=== PATIENT | male | born 1950 | race Caucasian/White ===

== ENCOUNTER 2018-07-12 05:35 | Inpatient (IN) | payer OTHER ==
[2018-07-12] MEDS ORDERED: GABAPENTIN 300 MG CAP PO ONE (05:47)
[2018-07-12] MEDS ORDERED: ceFAZolin 2 GM/DEXTROSE 100 ML IV ONE (05:47)
[2018-07-12] MEDS ORDERED: ACETAMINOPHEN 500 MG TAB PO ONE (05:47)
--- NOTE | 2018-07-12 06:02 | PDHPUP ---
History & Physical Update H&P update statement: This history and physical update is based on an assessment of the patient which was completed after admission or registration (within 24 hours), but prior to the surgery/procedure. H&P update: H&P reviewed & patient examined, no change in patient's condition since H&P completed
[2018-07-12] MEDS ORDERED: LR 1,000 ML IV ONE (06:07)
[2018-07-12] MEDS ORDERED: BUPIVACAINE 0.25% 30 ML SDV ONE (06:16)
[2018-07-12] MEDS ORDERED: EPINEPHrine 1 MG/ML INJ ONE (06:16)
[2018-07-12] MEDS ORDERED: THROMBIN (BOVINE) 5,000 UNIT VIAL TP ONE (06:16)
[2018-07-12] MEDS ORDERED: CHLORHEXIDINE GLUC HIBICLENS 118 ML BTL TP ONE (06:16)
[2018-07-12] MEDS ORDERED: DEPO METHYLPREDNISOLONE 40 MG/ML SDV ONE (06:16)
[2018-07-12] MEDS ORDERED: BACITRACIN 50,000 UNITS/10 ML SYR IRR ONE (06:17)
[2018-07-12] MEDS ORDERED: MIDAZOLAM 2 MG/2 ML VIAL IVP ONE (06:39)
--- NOTE | 2018-07-12 06:44 | PDANEPAE ---
ANE History of Present Illness Lumbar laminectomies ANE Past Medical History - Cardiovascular History Hx Hypertension: No Hx Arrhythmias: No Hx Chest Pain: No Hx Coronary Artery / Peripheral Vascular Disease: No Hx CHF / Valvular Disease: No Hx Palpitations: No - Pulmonary History Hx COPD: No Hx Asthma/Reactive Airway Disease: No Hx Recent Upper Respiratory Infection: No Hx Oxygen in Use at Home: No Hx Sleep Apnea: No Sleep Apnea Screening Result - Last Documented: Negative - Neurologic History Hx Cerebrovascular Accident: No Hx Seizures: No Hx Dementia: No Neurologic History Comment: PARKINSON'S DX 2012 - Endocrine History Hx Diabetes: No Hypothyroid: No Hyperthyroid: No Obesity: no - Renal History Hx Renal Disorders: No - Liver History Hx Hepatic Disorders: No - Neurological & Psychiatric Hx Hx Neurological and Psychiatric Disorders: No - Cancer History Hx Cancer: Yes Cancer History Comment: PROSTATE - Congenital Disorder History Hx Congenital Disorders: No - GI History Hx Gastrointestinal Disorders: No - Other Health History Other Health History: SPINAL STENOSIS. BILATERAL N/T LEGS-FEET. MISSING TEETH - Chronic Pain History Chronic Pain: Yes (LOWER BACK AND LEGS/FEET) - Surgical History Prior Surgeries: PROSTATECTOMY 2008. SARAH KNEE SCOPES. TONSILLECTOMY ANE Review of Systems Review of Systems: - Exercise capacity METS (RN): 4 METS ANE Patient History - Allergies Allergies/Adverse Reactions: No Known Allergies Allergy (Verified 06/17/18 13:28) - Home Medications Home Medications: Amantadine HCl [Gocovri] 137 mg PO HS 06/17/18 [Last Taken 07/11/18] Carbidopa/Levodopa 25/100Mg [Sinemet 25/100 MG (*)] 1 tab PO TID@08,1330,1730 [Last Taken 07/11/18] Ibuprofen [Motrin (*)] 200 mg PO DAILY PRN 06/17/18 [Last Taken 07/02/18] - NPO status NPO Status: no food or drink >8 hours NPO Since - Liquids (Date): 07/11/18 NPO Since - Liquids (Time): 20:30 NPO Since - Solids (Date): 07/11/18 NPO Since - Solids (Time): 19:30 - Anes Hx Anes Hx: no prior problems - Smoking Hx Smoking Status: Former smoker - Alcohol Use Alcohol Use: Occasionally - Family Anes Hx Family Anes Hx: none ANE Labs/Vital Signs - Vital Signs Blood Pressure: 154/101 Heart Rate: 69 Respiratory Rate: 16 O2 Sat (%): 93 Height: 175.26 cm Weight: 79.379 kg ANE Physical Exam - Airway Neck exam: FROM Mallampati Score: Class 2 Mouth exam: normal dental/mouth exam - Pulmonary Pulmonary: no respiratory distress, no rales or rhonchi - Cardiovascular Cardiovascular: regular rate and rhythym, no murmur, rub, or gallop - ASA Status ASA Status: III ANE Anesthesia Plan Anesthesia Plan: general endotracheal anesthesia
[2018-07-12] MEDS ORDERED: fentaNYL 250 MCG/5 ML INJ ONE (06:48)
[2018-07-12] MEDS ORDERED: PROPOFOL/EMULSION 500 MG/50 ML BOTTLE IV ONE ×2 (06:48)
[2018-07-12] MEDS ORDERED: ROCURONIUM 50 MG/5 ML VIAL ONE (06:49)
[2018-07-12] MEDS ORDERED: LIDOCAINE 2% 5 ML SDV ONE (06:49)
[2018-07-12] MEDS ORDERED: HYDROmorphONE/DILAUDID 1 MG/ML INJ IVP PRN (07:23)
[2018-07-12] MEDS ORDERED: BISACODYL 10 MG SUPP PR PRN (07:23)
[2018-07-12] MEDS ORDERED: diphenhydrAMINE 25 MG CAP PO PRN (07:23)
[2018-07-12] MEDS ORDERED: ONDANSETRON DISINTEGRATING 4 MG TAB PO PRN (07:23)
[2018-07-12] MEDS ORDERED: LACTULOSE 20 GM/30 ML UDCUP PO PRN (07:23)
[2018-07-12] MEDS ORDERED: POLYETHYLENE GLYCOL 3350 17 GM PKT PO PRN (07:23)
[2018-07-12] MEDS ORDERED: MAGNESIUM HYDROXIDE 30 ML UDCUP PO PRN (07:23)
[2018-07-12] MEDS ORDERED: ONDANSETRON 4 MG/2 ML VIAL IVP PRN ×2 (07:23→09:51)
[2018-07-12] MEDS ORDERED: NS 1,000 ML IV SCH (07:30)
[2018-07-12] MEDS ORDERED: ESMOLOL HCL 100 MG/10 ML VIAL IV ONE (07:35)
[2018-07-12] MEDS ORDERED: METOPROLOL TARTRATE 5 MG/5 ML INJ ONE (07:35)
[2018-07-12] MEDS ORDERED: fentaNYL 100 MCG/2 ML INJ ONE ×2 (07:36→10:12)
[2018-07-12] MEDS ORDERED: DEXAMETHASONE 4 MG/ML VIAL ONE (08:04)
[2018-07-12] MEDS ORDERED: ONDANSETRON 4 MG/2 ML VIAL ONE (09:21)
--- NOTE | 2018-07-12 09:42 | POSTOPPROG ---
Post Op Note Date of Operation: 07/12/18 Surgeon: Nneka Marsh Call Center Analyst: JERICA Renteria Anesthesiologist: MD David Anesthesia: GET(General Endotracheal), Local (Specify) Pre-op Diagnosis: lumbar stenosis L3-L5 Post-op Diagnosis: lumbar stenosis L3-L5 Indication: BLE pain, LBP Procedure: L3-L5 laminectomy Findings: see op report Inf/Abcess present in the surg proc area at time of surgery?: No Depth: Deep Incisional (Fascial) EBL: 50-100 Total fluids administered: see anesthesia record Complications: none Clean Closure Performed: Yes Drains: Ashutosh Key
[2018-07-12] MEDS ORDERED: oxyCODONE IR 5 MG TAB PO PRN (09:51)
[2018-07-12] MEDS ORDERED: HYDROCODONE/APAP 5/325 TAB PO PRN (09:51)
[2018-07-12] MEDS ORDERED: PROMETHAZINE HCL 25 MG/ML INJ IVP PRN (09:51)
[2018-07-12] MEDS ORDERED: NALOXONE HCL 0.4 MG/ML INJ IVP PRN (09:51)
[2018-07-12] MEDS ORDERED: DIAZEPAM 5 MG/ML 1 ML SYR IVP PRN (09:51)
[2018-07-12] MEDS ORDERED: HYDROmorphONE/DILAUDID 2 MG/ML INJ IVP PRN (09:51)
--- NOTE | 2018-07-12 09:52 | SOAPPROG ---
SOAP Progress Note Assessment/Plan: Post Op Visit: S: Awake and alert. NAD. Pt with expected lower back pain O: AFVSS/PERRLA/EOMI no droop CN 2-12 grossly intact +lt touch 5/5 BUE/BLE = CDI A/P: 68 yo male that is s/p L3-L5 laminectomy -orders in place -call with any questions or concerns -take medications as directed -Pt seen by Dr Marsh as well Objective: Vital Signs Temp Pulse Resp BP Pulse Ox 36.9 C 69 16 154/101 H 93 07/12/18 06:09 07/12/18 06:43 07/12/18 06:43 07/12/18 06:43 07/12/18 06:43 ICD10 Worksheet Patient Problems: Problems Problem Status Onset Lumbar radicular pain Acute Lumbar stenosis Acute - ICD10 Problem Qualifiers (1) Lumbar stenosis (2) Lumbar radicular pain
[2018-07-12] MEDS: FAMOTIDINE 20 MG TAB PO SCH ×2 (10:12→21:37)
[2018-07-12] MEDS: SENNOSIDES/DOCUSATE SODIUM TAB PO SCH ×2 (10:13→21:37)
[2018-07-12] MEDS: CARBIDOPA/LEVODOPA 25 MG/100 MG TAB PO SCH ×3 (10:13→16:28)
[2018-07-12] MEDS: fentaNYL 100 MCG/2 ML INJ IVP PRN ×3 (10:15→10:35)
--- NOTE | 2018-07-12 10:31 | GOP ---
[f rep st] OPERATIVE REPORT DATE OF OPERATION: 07/12/2018 SURGEON: Jose Juan Marsh MD NEUROSURGEON: Jose Juan Marsh MD. [employer]EM[employer]: Larry Renteria PA-C. PREOPERATIVE DIAGNOSIS: Severe spinal stenosis, L3-4, L4-5; neurogenic claudication; degenerative sc oliosis; multilevel lumbar spondylosis; foraminal stenosis, L3-4, L4-5. POSTOPERATIVE DIAGNOSIS: Severe spinal stenosis, L3-4, L4-5; neurogenic claudication; degenerative s coliosis; multilevel lumbar spondylosis; foraminal stenosis, L3-4, L4-5. PROCEDURE PERFORMED: Bilateral L3-4, L4-5 laminectomies with bilateral recess decompressions, L3-4, L4-5 with bilateral foraminotomies at L3-4, L4-5, with special attention to the left L4-5 foramen and the right L3-4 foramen ([id number], microscope). FINDINGS: ESTIMATED BLOOD LOSS: 50 mL. INDICATIONS: The patient is an elderly gentleman with a history of Parkinson disease, had terrible p ain radiating down both legs and MRI demonstrated severe stenosis at L3-4, L4-5 with very severe righ t foraminal stenosis at 3-4 and very severe left foraminal stenosis at 4-5, and I suggested bilateral decompressions at 3-4, 4-5. He understood that he also had a degenerative scoliosis, although we di d not belabor this point, but the plan today was simply to decompress the spinal canal and the neural foramen to the extent that we could, but more significant multilevel spine surgery could be consider ed if this failed, but I thought simple decompressions alone were in the patient's best interest and had a reasonable chance of success. The risks of continued symptoms, nerve injury, spinal fluid leak were discussed. He wanted to proceed despite the risks. DESCRIPTION OF PROCEDURE: The patient was taken to the operating room and placed in supine position. General anesthesia was begun. He was flipped prone on the Trent frame. Care was taken to pad all points of contact. His back was sterilely prepped and draped in the usual fashion. A localizing x- ray was taken. I made a midline incision. It was about 3.5 cm in length above the L3-4, 4-5 intersp irena. The subcutaneous tissues were dissected using Bovie cautery down to the fascia and a subperiost eal dissection was made down the L3, L4 and rostral L5 lamina. Self-retaining retractor was placed. A localizing x-ray was taken. We removed the L4 spinous process. We removed the inferior L3 spinou s process. We drilled bilateral laminectomies at L3-4, 4-5, preserving the rostral arch of L3. We r emoved the complete lamina of L4. We preserved the IAP, SAP complexes of L3-4, L4-5 bilaterally. Un bill the microscope, we opened the ligamentum flavum and decompressed centrally at the 3-4, 4-5 level and then worked our way into the lateral recesses, first on the left, beginning at the L5 pedicle and we worked our way up along the L4-5 facet joint and all the way past the L4 pedicle to the L3-4 segm ent where we decompressed the lateral recess at L3-4. We only removed about a third of the medial fa cet on the left-hand side and we ended up removing about a third of the medial facets on right at L3- 4, 4-5. We then turned our attention the right where we decompressed adjacent to the right L5 pedicl e and worked our way up along the lateral recess at L4-5, removing the spondylotic tissue from the la teral aspect of the spinal canal. We decompressed from the thecal edge of the thecal sac to the edge of the thecal sac and we could appreciate the traversing L5 roots at L4-5, the traversing L4 roots a t 3-4. We worked our way up on the right-hand side adjacent to the L4 pedicle and then the L3-4 disk space and we focused on the right foramen at L3-4, where we decompressed the foramen nicely, identif ied the exiting L3 nerve root. The neural foramen was nicely decompressed there. We did likewise on the right at L4-5, but the foraminal stenosis there was more reasonable. We went to the left side a t L4-5 where there was really remarkable left foraminal stenosis at 4-5 due to include incursion of t he SAP of L5 into the exiting L4 nerve root at the 4-5 level on the left side. We got a great decomp ression. We were able to pass a ball-tip probe out along the 4 root into the neural foramen at the e nd of our decompression. We did do a left foraminotomy at L3-4, but it was not as extensive as the r ight foraminotomy 3-4. We irrigated with antibiotic saline solution, shot a final x-ray confirming t he extent of our decompressions from the inferior L3 pedicle down to the mid L5 pedicle. We had grea t decompressions on each side. The facet joints had been preserved. We then closed the incision in multiple layers using Vicryl sutures. A running PDS was placed in the skin itself. The patient was reversed from anesthesia, extubated and transferred to the recovery room in stable condition. COMPLICATIONS: None. /[id number]/MODL
[2018-07-12] MEDS ORDERED: HYDROmorphONE/DILAUDID 2 MG/ML INJ ONE (10:44)
[2018-07-12] MEDS: METHOCARBAMOL 750 MG TAB PO PRN ×2 (11:38→18:14)
[2018-07-12] MEDS: oxyCODONE IR 5 MG TAB PO PRN ×3 (11:38→21:39)
--- NOTE | 2018-07-12 11:44 | PDMN ---
Medical Necessity Medical necessity: Pt meets inpt criteria per MD order and [employer] [facility] [employer] S-830, Lumbar Laminectomy. 68 y/o w/ severe spinal stenosis, L3-4, L4-5 and resultant BLE pain and low back pain admitted for surg intervention: L3-L5 laminectomy. W/ surg involving more than 1 level and comorbid condition of Parkinsons, pt meets inpt status criteria.
[2018-07-12] MEDS: GABAPENTIN 300 MG CAP PO SCH ×2 (13:18→21:38)
[2018-07-12] MEDS: ACETAMINOPHEN 500 MG TAB PO SCH ×2 (13:19→21:37)
[2018-07-12] MEDS: ceFAZolin 2 GM/DEXTROSE 100 ML IV SCH ×2 (13:20→21:37)
[2018-07-12] MEDS ORDERED: AMANTADINE HCL 137 MG PO SCH (21:00)
[2018-07-13] MEDS: GABAPENTIN 300 MG CAP PO SCH ×2 (05:30→13:43)
[2018-07-13] MEDS: ACETAMINOPHEN 500 MG TAB PO SCH ×2 (06:34→13:43)
--- NOTE | 2018-07-13 08:03 | NEUSURGPN ---
Date of Surgery: 07/12/18 Post Op Day: 1 Assessment/Plan: Assessment: 68 yo male that is s/p L3-L5 laminectomy POD #1 Plan: -s/p lumbar laminectomy: doing well this am. Pt states that legs feel better, he still has some numbness that is better but not gone -PT/OT pending -no brace needed -orders in place -call with any questions or concerns -take medications as directed -Pt seen by Dr Marsh as well -plan for dc later today Subjective: Awake and alert. NAD. Eating/drinking and voiding. No f/c/n/v/d. No granger/neck/ chest/abd or gu complaints. Objective: AFVSS/PERRLA/EOMI no droop CN 2-12 grossly intact +lt touch 5/5 BUE/BLE = CDI Neuro Check Frequency: per routine Urinary Catheter in Place: No - Physician Discussed Patient with : Maximo Patient Seen by : Maximo Neurosurgery Physical Exam - Vitals, I&O, Labs I and O 07/12/18 07/13/18 07/14/18 05:59 05:59 05:59 Intake Total 1940 Output Total 950 500 Balance 990 -500 Weight 79.379 kg Intake: Oral (ml) 330 IV Intake (ml) 1500 IV Infused (ml) 110 ceFAZolin 2 GM/DEXTROSE 110 100 ml @ 200 mls/hr IV Q8HRS [facility] Rx#:[id number] Output: Urine (ml) 800 500 Toilet 800 500 Estimated Blood Loss (ml) 50 Emesis (ml) 100 Other: Intake Quantity Yes Sufficient Number of Voids Toilet 1 1 Bladder Scan Volume (ml) 150 Toilet 390 Post Void Residual Scan Volume (ml) Toilet 0 Number of Emesis 1 Occurrences Vital Signs Temp Pulse Resp BP Pulse Ox 36.8 C 59 L 15 115/71 95 07/13/18 07:22 07/13/18 07:22 07/13/18 07:22 07/13/18 07:22 07/13/18 07:22 ICD10 Worksheet Patient Problems: Problems Problem Status Onset Lumbar radicular pain Acute Lumbar stenosis Acute - ICD10 Problem Qualifiers (1) Lumbar stenosis (2) Lumbar radicular pain
[2018-07-13] MEDS: CARBIDOPA/LEVODOPA 25 MG/100 MG TAB PO SCH ×2 (08:50→13:43)
[2018-07-13] MEDS: SENNOSIDES/DOCUSATE SODIUM TAB PO SCH (08:51)
[2018-07-13] MEDS: FAMOTIDINE 20 MG TAB PO SCH (08:52)
[2018-07-13] MEDS: oxyCODONE IR 5 MG TAB PO PRN (09:38)
[2018-07-13] MEDS: METHOCARBAMOL 750 MG TAB PO PRN (09:38)
[2018-07-13 11:05] VITALS: BP 137/76
--- NOTE | 2018-07-13 11:51 | ASMTLACE ---
LACE Length of stay for Answers: 2 days current admission Acuity / Level of Answers: Yes Care: Did the patient have an inpatient admission? Comorbidities - select Answers: Any tumor (including all that apply lymphoma or leukemia) Opioid dependence / Chronic pain Other Notes: Spinal stenosis; Parkinsons disease # of Emergency department Answers: 0 visits in the last 6 months Score: 12 Date Signed: 07/13/2018 11:50 AM Electronically Signed By:ADELITA Alvarez
--- NOTE | 2018-07-13 11:52 | ASMTCMCOM ---
CM Note CM Note Notes: Pt had planned surgery for spinal stenosis, resides with spouse. PT rec home/outpatient, OT rec home. No CM d/c needs identified. Date Signed: 07/13/2018 11:51 AM Electronically Signed By:ADELITA Alvarez
--- NOTE | 2018-07-13 15:16 | POSTANESTH ---
Post Anesthetic Evaluation Cardiovascular Status: Normal, Stable Respiratory Status: Normal, Stable Level of Consciousness/Mental Status: Can Participate in Eval Pain Control: Adequate, Prn Tx Ordered Nausea/Vomiting Control: Adequate, Prn Tx Ordered Complications Possibly Related to Anesthesia: None Noted
[2018-07-13] MEDS ORDERED: AMANTADINE HCL PO SCH (21:00)
[2018-07-15] MEDS ORDERED: ENOXAPARIN 40 MG/0.4 ML SYR SC SCH (09:00)
== END 2018-07-13 14:18 | disposition home or self-care (01) | DRG 520 ==
LOC: F3N 05:35 → OBSVTOIN 07:27 → F3N 11:17
PROVIDERS: ADMIT Neurological Surgery; ATTEND Neurological Surgery
PROC: 01NB0ZZ Release Lumbar Nerve, Open Approach (ICD-10-PCS; principal; 2018-07-12 07:15)
PROC: 00NY0ZZ Release Lumbar Spinal Cord, Open Approach (ICD-10-PCS; principal; 2018-07-12 07:15)
PROC: 4A1004G Monitoring of Central Nervous Electrical Activity, Intraoperative, Open Approach (ICD-10-PCS; principal; 2018-07-12 07:15)
DX: M48.062 Spinal stenosis, lumbar region with neurogenic claudication (principal); M41.9 Scoliosis, unspecified; M47.26 Other spondylosis with radiculopathy, lumbar region; G20 Parkinson's disease
CPT/HCPCS: 97116-GP; 97161-GP; 97166-GO; 97535-GO; J0171; J0690; J1030; J1100; J1170; J2405; J2704; J3010